=== PATIENT | female | born 1970 | race African-American/Black ===

== ENCOUNTER 2017-06-04 11:45 | Day surgery (SDC) | payer OTHER ==
[2017-06-03 12:55] VITALS: BMI 39.2
[2017-06-04] MEDS ORDERED: Propofol 200 MG/20 ML VIAL ONE (13:19)
--- NOTE | 2017-06-04 14:26 | OP ---
DATE OF PROCEDURE: 06/04/2017 PROCEDURE: Esophagogastroduodenoscopy with biopsy and incomplete colonoscopy. PREOPERATIVE DIAGNOSES: Epigastric abdominal pain with history of Helicobacter pylori infection and change in bowel habits and constipation. OPERATIVE NOTE: Informed consent was obtained from the patient. She was sedated with total intrave nous anesthesia. The bite block was placed and the endoscope was advanced easily to the second port ion of the duodenum and retroflexion was performed in the stomach. The esophagus was normal. The G E junction was normal. The stomach had minimal nonerosive patchy erythematous gastritis in the antr um. Biopsies were obtained to rule out H. pylori. Retroflexed views in the stomach were normal. T he pylorus and first and second portions of the duodenum were normal. Duodenal biopsies were taken to rule out celiac disease. The patient was turned around. Rectal exam was performed and was panchito l. The colonoscope was advanced to the cecum where the ileocecal valve and appendiceal orifice were clearly identified. The preparation quality was poor with solid stool and thick liquid stool throu ghout the colon. Views were only adequate to rule out a large near obstructing mass anywhere in the colon. The scope could be passed to the cecum. The remainder of the views of the colon was inadeq uate. Retroflexed views in the rectum again were obstructive and had been unremarkable. RECOMMENDATIONS: 1. Minimal antral gastritis. 2. Otherwise normal esophagogastroduodenoscopy. Gastric biopsies taken to rule out Helicobacter py eugene. Duodenal biopsies taken to rule out celiac disease. 3. Incomplete colonoscopy due to poor colon prep. There were no large obstructing lesions. The sc ope could be advanced to the cecum. RECOMMENDATIONS: 1. Await histopathology. 2. Adjust dose of daily Linzess based on her response. 3. Reschedule colonoscopy with a better prep.
== END 2017-06-04 15:11 | disposition home or self-care (01) ==
LOC: SDC 11:45
PROVIDERS: ATTEND Internal Medicine Gastroenterology
PROC: 0DB68ZX Excision of Stomach, Via Natural or Artificial Opening Endoscopic, Diagnostic (ICD-10-PCS; principal; 2017-06-04)
PROC: 0DJD8ZZ Inspection of Lower Intestinal Tract, Via Natural or Artificial Opening Endoscopic (ICD-10-PCS; principal; 2017-06-04)
DX: K29.80 Duodenitis without bleeding (principal); K29.70 Gastritis, unspecified, without bleeding; B96.81 Helicobacter pylori [H. pylori] as the cause of diseases classified elsewhere; Z79.899 Other long term (current) drug therapy; Z88.8 Allergy status to other drugs, medicaments and biological substances; Z96.652 Presence of left artificial knee joint; Z90.710 Acquired absence of both cervix and uterus; Z98.890 Other specified postprocedural states
CPT/HCPCS: 88305; 88312; J2704

== ENCOUNTER 2017-07-12 14:11 | Outpatient (CLI) | payer OTHER ==
--- NOTE | 2017-07-12 16:48 | MRI ---
NONCONTRAST LUMBAR SPINE MRI 07/12/17 INDICATION: Lumbar spondylosis without myelopathy. FINDINGS: There is no evidence of marrow edema, compression deformity or traumatic subluxation of the lumbar sp ine. There is mild straightening of the normal lumbar lordosis. Conus medullaris is normal in morphol ogy terminating at T12-L1. No abnormality of significance involving the visualized retroperitoneum. D isc spaces are preserved. No evidence of disc space fluid or paraspinus edema. The central canal and neural foramina of the lumbar spine do not reveal significant stenosis. Focal fatty marrow is present involving the sacrum. IMPRESSION: No significant abnormalities of the lumbar spine. POS: [facility]
== END 2017-07-12 14:12 | disposition home or self-care (01) ==
LOC: TBSIIMAG 14:11
PROVIDERS: ATTEND Neurological Surgery
DX: M47.816 Spondylosis without myelopathy or radiculopathy, lumbar region (principal); Q76.2 Congenital spondylolisthesis
CPT/HCPCS: 72148

== ENCOUNTER 2017-08-08 09:24 | Outpatient (CLI) | payer OTHER ==
[2017-08-08 10:53] LABS: Mean Corpuscular HGB CONC 31.6 g/dL (32.0-36.0); Mean Corpuscular Hemoglobin 28.8 pg (27.0-31.0); Mean Corpuscular Volume 91.2 fl (81.0-99.0); Mean Platelet Volume 7.4 fL (7.4-10.4); Platelet Count 338 thou/uL (130-400); RBC Distribution Width 11.7 % (11.5-14.5); Red Blood Cell (RBC) Count 3.82 mill/uL (4.20-5.40); White Blood Cell (WBC) Count 9.7 thou/uL (4.8-10.8)
[2017-08-08 11:05] LABS: Anion Gap 12 mmol/L (10-20); BUN (Urea Nitrogen) 18 mg/dL (7.0-18.7); Calc. Creatinine Clearance 0 mL/min (70-130); Calcium 8.6 mg/dL (7.8-10.44); Carbon Dioxide 21 mmol/L (22-29); Chloride 110 mmol/L (98-107); Estimated GFR-MDRD 90; Glucose 103 mg/dL (70-105); Potassium 3.3 mmol/L (3.5-5.1); Sodium 140 mmol/L (136-145)
--- NOTE | 2017-08-15 19:36 | EKG ---
Test Reason : Blood Pressure : / mmHG Vent. Rate : 075 BPM Atrial Rate : 075 BPM P-R Int : 154 ms QRS Dur : 086 ms QT Int : 432 ms P-R-T Axes : 073 034 035 degrees QTc Int : 482 ms Normal sinus rhythm Cannot rule out Anterior infarct , age undetermined Abnormal ECG When compared with ECG of 12-DEC-2016 11:14, Nonspecific T wave abnormality has replaced inverted T waves in Inferior leads Nonspecific T wave abnormality no longer evident in Lateral leads Confirmed by YARELI KINGSTON (2) on 08/15/2017 7:36:05 PM Referred By: [place] Confirmed By:YARELI KINGSTON
== END 2017-08-08 09:25 | disposition home or self-care (01) ==
LOC: LABBT 09:24
PROVIDERS: ATTEND Neurological Surgery
DX: Z01.818 Encounter for other preprocedural examination (principal); M54.12 Radiculopathy, cervical region
CPT/HCPCS: 80048; 85027; 93005; 93010

== ENCOUNTER 2017-08-12 06:09 | Day surgery (SDC) | payer OTHER ==
[2017-08-08 09:42] VITALS: BMI 38.5
[2017-08-12] MEDS ORDERED: CEFAZOLIN/Water 2 GM/20 ML SYRINGE ONE (06:17)
[2017-08-12] MEDS ORDERED: Sodium Chloride 0.9% 10 ML ONE (06:28)
[2017-08-12] MEDS ORDERED: Fentanyl 100 MCG/2 ML VIAL ONE ×2 (07:01→08:47)
[2017-08-12] MEDS ORDERED: Promethazine HCl 25 MG/ML VIAL ONE (07:14)
--- NOTE | 2017-08-12 08:36 | OP ---
DATE OF PROCEDURE: 08/12/2017 SURGEON: Davonte Hernandez M.D. DIRECTOR OPERATIONS: Stephy Holliday PROCEDURE: Anterior cervical discectomy C6-7. Interbody arthrodesis, intravertebral biomechanical d evice, local morselized autograft, demineralized bone matrix, anterior titanium instrumentation C6-7. PROCEDURE IN DETAIL: The patient was brought into the operating room and intubated. She was positio shaggy supine with the head in modest extension on a gel-filled donut. Incision was made in the right p recervical area and dissecting medial to the sternocleidomastoid muscle. We identified the anterior cervical spine and our level was confirmed by x-ray. We debrided anterior osteophytes, placed distra ction across the disc space and using the operating microscope and microdissection techniques, comple tely decompressed the spinal cord from foramen to foramen. The bony endplates were then decorticated for the purpose of arthrodesis and appropriately sized intravertebral biomechanical PEEK device was brought into the field, filled with demineralized bone matrix and local morselized autograft, and tap ped into place securely at C6-7. Next, an anterior plate was brought in the field and secured to C6 and C7 using two 14 mm screws at each level. The wound was then extensively irrigated, immaculate he mostasis was secured, and the wound was closed in anatomic layers over a drain.
[2017-08-12] MEDS ORDERED: diphenhydrAMINE 25 MG CAP PO PRN (11:29)
[2017-08-12] MEDS ORDERED: Morphine 4 MG/ML Carpuject SLOW IVP PRN (11:29)
[2017-08-12] MEDS ORDERED: diphenhydrAMINE 50 MG/ML VIAL IVP PRN (11:29)
[2017-08-12] MEDS ORDERED: Milk Of Magnesia 30 ML UDCUP PO PRN (11:29)
[2017-08-12] MEDS ORDERED: Promethazine HCl 25 MG/ML VIAL IM PRN (11:29)
[2017-08-12] MEDS ORDERED: HYDROcodone/Acetaminophen 10/325 mg Tablet PO PRN (11:29)
[2017-08-12] MEDS ORDERED: traMADol HCl 50 MG TAB PO PRN ×2 (11:29)
[2017-08-12] MEDS ORDERED: Promethazine HCl 12.5 MG SUPP PR PRN (11:29)
[2017-08-12] MEDS: tiZANidine HCl 4 MG TAB PO PRN ×2 (11:35→21:22)
[2017-08-12] MEDS: Sodium Chloride 0.9% 1,000 ML IV SCH ×2 (11:36→23:19)
[2017-08-12] MEDS: HYDROcodone/Acetaminophen 10/325 mg Tablet PO PRN ×3 (11:38→20:09)
[2017-08-12] MEDS ORDERED: Morphine PF 1 MG/ML SYR IVP PRN (11:45)
[2017-08-12] MEDS ORDERED: Morphine 5 mg/5 ml in 0.9% NaCl/PF SYRINGE SLOW IVP PRN (11:45)
[2017-08-12] MEDS: CEFAZOLIN/Water 2 GM/20 ML SYRINGE SLOW IVP SCH ×2 (14:17→22:07)
[2017-08-12] MEDS ORDERED: Lidocaine 1% PF 5 ML VIAL ONE (16:52)
[2017-08-12] MEDS ORDERED: Ketorolac Tromethamine 30 MG/ML VIAL ONE (16:52)
[2017-08-12] MEDS ORDERED: Propofol 200 MG/20 ML VIAL ONE (16:52)
[2017-08-12] MEDS ORDERED: Dexamethasone 20 MG/5 ML VIAL ONE (16:52)
[2017-08-12] MEDS ORDERED: Glycopyrrolate 0.2 MG/ML 5 ML SYRINGE ONE (16:52)
[2017-08-12] MEDS ORDERED: Zolpidem Tartrate 5 MG TAB PO SCH (21:30)
[2017-08-13] MEDS: HYDROcodone/Acetaminophen 10/325 mg Tablet PO PRN ×2 (02:17→06:36)
[2017-08-13] MEDS: tiZANidine HCl 4 MG TAB PO PRN (05:11)
[2017-08-13 05:58] VITALS: BP 102/66; TEMP 97.5
[2017-08-13] MEDS: CEFAZOLIN/Water 2 GM/20 ML SYRINGE SLOW IVP SCH (06:39)
[2017-08-13] MEDS ORDERED: Zolpidem Tartrate 5 MG TAB PO SCH (21:00)
== END 2017-08-13 10:34 | disposition home or self-care (01) ==
LOC: SDC 06:09 → 3SE 09:21 → SDC 08-13 10:34
PROVIDERS: ATTEND Neurological Surgery
PROC: 0RT30ZZ Resection of Cervical Vertebral Disc, Open Approach (ICD-10-PCS; principal; 2017-08-13)
PROC: 0RG10A0 Fusion of Cervical Vertebral Joint with Interbody Fusion Device, Anterior Approach, Anterior Column, Open Approach (ICD-10-PCS; principal; 2017-08-13)
DX: M50.123 Cervical disc disorder at C6-C7 level with radiculopathy (principal); Z79.899 Other long term (current) drug therapy; Z88.8 Allergy status to other drugs, medicaments and biological substances; Z90.710 Acquired absence of both cervix and uterus; Z90.89 Acquired absence of other organs; Z98.890 Other specified postprocedural states
CPT/HCPCS: 76001; A4216; C1713; J1100; J1885; J2001; J2270; J2550; J2704; J3010; J3490

== ENCOUNTER 2017-08-29 16:07 | Outpatient (CLI) | payer OTHER ==
--- NOTE | 2017-08-29 17:57 | RAD ---
RADIOGRAPH CERVICAL SPINE 3 VIEWS: 08/29/17 HISTORY: 47-year-old female with degenerative disc disease of the cervical spine. COMPARISON: None. FINDINGS: There are anterior metallic plate and screws at C6 and C7, with interbody fusion bone graft cage betw een the C6 and C7 vertebral bodies. Alignment is normal. Vertebral body heights are maintained. There are small end plate marginal osteophytes encroaching upon the anterior aspect of the spinal canal at C4-5 and C5-6. No high grade disc space narrowing identified. No prevertebral soft tissue swelling. Atlantoaxial joints are normal. IMPRESSION: 1. Status post anterior cervical discectomy and fusion (ACDF) at C6-7. 2. Mild degenerative disc changes at C4-5 and C5-6. STEPHANIE [] POS: [facility]
== END 2017-08-29 16:08 | disposition home or self-care (01) ==
LOC: TBSIIMAG 16:07
PROVIDERS: ATTEND Physician Assistant
DX: M50.30 Other cervical disc degeneration, unspecified cervical region (principal); Z98.1 Arthrodesis status
CPT/HCPCS: 72040

== ENCOUNTER 2017-10-09 15:44 | Outpatient (CLI) | payer OTHER ==
--- NOTE | 2017-10-09 17:16 | RAD ---
CERVICAL SPINE: 10/09/17 Four views. HISTORY: Postop followup. COMPARISON: Films of 08/29/17. FINDINGS/IMPRESSION: Patient is post anterior fusion procedure. Anterior plate and screws and interbody implant again note d at C6-7. Vertebral bodies maintain height and alignment. There has been no significant interval mile nge. POS: [facility]
== END 2017-10-09 15:45 | disposition home or self-care (01) ==
LOC: TBSIIMAG 15:44
PROVIDERS: ATTEND Neurological Surgery
DX: M50.30 Other cervical disc degeneration, unspecified cervical region (principal); Z98.1 Arthrodesis status
CPT/HCPCS: 72040

== ENCOUNTER 2017-11-15 07:23 | Outpatient (CLI) | payer OTHER, MEDICARE ==
--- NOTE | 2017-11-15 09:06 | MRI ---
MRI THORACIC SPINE: HISTORY: Thoracic radiculopathy, M54.14. FINDINGS: Multiplanar, multisequence, noncontrast-enhanced MRI images thoracic spine are obtained. The spinal cord is unremarkable. No evidence of cord masses or lesions seen. Disks are well maintai shaggy without evidence of disk herniations, spinal stenosis, or significant neural foraminal narrowing. The vertebral bodies are unremarkable. No evidence of epidural masses or lesions seen. IMPRESSION: Normal MRI thoracic spine. POS: [facility]
== END 2017-11-15 07:24 | disposition home or self-care (01) ==
LOC: MRI 07:23
PROVIDERS: ATTEND Specialist
DX: M54.14 Radiculopathy, thoracic region (principal)
CPT/HCPCS: 72146

== ENCOUNTER 2017-12-25 11:02 | Emergency (ER) | payer OTHER, MEDICARE ==
--- NOTE | 2017-12-25 12:28 | RAD ---
RADIOGRAPH RIGHT HIP TWO VIEWS: History: 47-year-old female status post acute traumatic injury to right hip from fall. FINDINGS: No fracture is identified. No dislocation. IMPRESSION: Negative. POS: [facility]
--- NOTE | 2017-12-25 12:29 | RAD ---
RADIOGRAPH PELVIS ONE VIEW: History: 47-year-old female with traumatic pelvic pain due to fall. FINDINGS: Pelvic ring appears to be grossly intact. No fracture or dislocation. IMPRESSION: Negative. POS: [facility]
== END 2017-12-25 12:57 | disposition home or self-care (01) ==
LOC: ERS 11:02
DX: S76.011A Strain of muscle, fascia and tendon of right hip, initial encounter (principal); F32.9 Major depressive disorder, single episode, unspecified; F41.9 Anxiety disorder, unspecified; I10 Essential (primary) hypertension; J45.909 Unspecified asthma, uncomplicated; K21.9 Gastro-esophageal reflux disease without esophagitis; Z79.82 Long term (current) use of aspirin; Z79.899 Other long term (current) drug therapy; W19.XXXA Unspecified fall, initial encounter
CPT/HCPCS: 72170

== ENCOUNTER 2018-02-14 17:24 | Emergency (ER) | payer OTHER, MEDICARE ==
[2018-02-14] MEDS ORDERED: Ketorolac Tromethamine 60 MG/2 ML VIAL ONE (18:19)
== END 2018-02-14 19:03 | disposition home or self-care (01) ==
LOC: ERS 17:24
DX: M54.5 Low back pain (principal); M19.90 Unspecified osteoarthritis, unspecified site; J45.909 Unspecified asthma, uncomplicated; K21.9 Gastro-esophageal reflux disease without esophagitis; I10 Essential (primary) hypertension; F41.9 Anxiety disorder, unspecified; F32.9 Major depressive disorder, single episode, unspecified; Z79.899 Other long term (current) drug therapy; Z79.82 Long term (current) use of aspirin; W10.9XXA Fall (on) (from) unspecified stairs and steps, initial encounter
CPT/HCPCS: 96372; J1885

== ENCOUNTER 2018-03-29 18:21 | Emergency (ER) | payer OTHER, MEDICARE ==
[2018-03-29] MEDS ORDERED: diphenhydrAMINE 25 MG CAP ONE (18:52)
[2018-03-29] MEDS ORDERED: Famotidine 20 MG TAB ONE (18:54)
[2018-03-29] MEDS ORDERED: predniSONE 20 MG TAB ONE (18:54)
== END 2018-03-29 19:04 | disposition home or self-care (01) ==
LOC: SCSER 18:21
DX: L50.9 Urticaria, unspecified (principal); F32.9 Major depressive disorder, single episode, unspecified; F41.9 Anxiety disorder, unspecified; I10 Essential (primary) hypertension; J45.909 Unspecified asthma, uncomplicated; K21.9 Gastro-esophageal reflux disease without esophagitis
CPT/HCPCS: 99282; J7506

== ENCOUNTER 2018-07-07 07:50 | Outpatient (CLI) | payer OTHER ==
--- NOTE | 2018-07-07 11:59 | RAD ---
UPPER GI SMALL BOWEL FOLLOW THROUGH: DATE: 07/07/2018. COMPARISON: None. HISTORY: Constipation. FINDINGS: [employer] imaging demonstrates a nonobstructed bowel gas pattern. Numerous calcifications in the pelvis noted, evidence of phleboliths. A double contrast upper GI is performed. Distal esophagus is normal. No gastroesophageal reflux cou ld be elicited during this examination. The duodenal bulb and gastric antrum appear normal. Gastric mucosa demonstrates no abnormality. Small bowel follow through was then performed. Contrast media rapidly extends to the colon, by 15-30 minutes. Spot imaging of the small bowel appears unremarkable. The patient ingested a barium table t which extends across the gastroesophageal junction without delay. IMPRESSION: No acute findings. Rapid transit from stomach to colon within 30 minutes. POS: [facility]
== END 2018-07-07 07:51 | disposition home or self-care (01) ==
LOC: RAD 07:50
PROVIDERS: ATTEND Family Medicine
DX: K59.01 Slow transit constipation (principal)
CPT/HCPCS: 74249

== ENCOUNTER 2018-08-25 09:44 | Outpatient (CLI) | payer OTHER, MEDICARE ==
--- NOTE | 2018-08-25 10:36 | RAD ---
LUMBAR SPINE FOUR VIEWS: Indications: Spondylosis without myelopathy. Low back pain. FINDINGS: Lumbar vertebrae maintain normal height and alignment in the lateral projection. Disc spaces are pres erved. Minimal degenerative spurring. Mild facet hypertrophy at L2-3 and L3-4 with moderate facet hyp ertrophy at L4-5 and L5-S1. No spondylolisthesis or spondylosis identified. No significant change in alignment with flexion or extension. IMPRESSION: Degenerative changes noted with facet hypertrophy prominent at L4-5 and L5-S1. Lumbar spine exam othe rwise unremarkable. POS: [facility]
--- NOTE | 2018-08-25 15:44 | MRI ---
MRI LUMBAR SPINE WITHOUT CONTRAST: HISTORY: M51.15, intervertebral disk disorder of the lumbar region. COMPARISON: Lumbar spine radiographs the same day, as well as MRI from 07/12/2017. FINDINGS: No marrow infiltrative process. The aortic contour is normal. No retroperitoneal adenopathy. No hy dronephrosis. The conus medullaris terminates at the inferior endplate of L1. Levels are as follows: L1-L2: Normal disk. No neural foraminal or spinal canal narrowing. L2-L3: Normal disk. No neural foraminal or spinal canal narrowing. L3-L4: Low grade disk desiccation. Small bilateral subforaminal disk osteophyte complexes, larger o n the right. There is mild right-sided neural foraminal narrowing without nerve root abutment. L4-L5: Mild disk desiccation. Very small bilateral lateral recess disk osteophyte complex bilateral ly. No significant neural foraminal or spinal canal narrowing. Moderate facet arthropathy. L5-S1: Mild disk desiccation. Moderate facet arthropathy. There is right lateral recess and subfor aminal zone disk osteophyte complex causing mild right-sided neural foraminal narrowing with abutment of the exiting nerve root. IMPRESSION: Mild spondylosis, worse at L5-S1. POS: [facility]
== END 2018-08-25 09:45 | disposition home or self-care (01) ==
LOC: BICMRI 09:44
PROVIDERS: ATTEND Nurse Practitioner Family
DX: M51.16 Intervertebral disc disorders with radiculopathy, lumbar region (principal); M47.26 Other spondylosis with radiculopathy, lumbar region; M47.817 Spondylosis without myelopathy or radiculopathy, lumbosacral region
CPT/HCPCS: 72110; 72148

== ENCOUNTER 2018-09-29 16:45 | Emergency (ER) | payer OTHER, MEDICARE ==
--- NOTE | 2018-09-29 17:20 | RAD ---
LEFT KNEE FOUR VIEWS: History: Fall with injury to knee. FINDINGS: There is a knee prosthesis. No acute fracture. No evidence of loosening. Components appear normal in alignment. No evidence of joint effusion. IMPRESSION: No acute finding. POS: [facility]
[2018-09-29] MEDS ORDERED: Ibuprofen 800 MG TAB ONE (17:25)
== END 2018-09-29 17:35 | disposition home or self-care (01) ==
LOC: SCSER 16:45
DX: M25.562 Pain in left knee (principal); J45.909 Unspecified asthma, uncomplicated; K21.9 Gastro-esophageal reflux disease without esophagitis; I10 Essential (primary) hypertension; F41.9 Anxiety disorder, unspecified; F32.9 Major depressive disorder, single episode, unspecified; W17.89XA Other fall from one level to another, initial encounter; Y92.59 Other trade areas as the place of occurrence of the external cause

== ENCOUNTER 2018-10-01 16:08 | Outpatient (CLI) | payer OTHER, MEDICARE | END 2018-10-01 16:09 | disposition home or self-care (01) | LOC: CTENTCT 16:08 | PROVIDERS: ATTEND Specialist | DX: J32.9 Chronic sinusitis, unspecified (principal) | CPT/HCPCS: 70486 ==

== ENCOUNTER 2018-10-02 10:20 | Day surgery (SDC) | payer OTHER, MEDICARE ==
[2018-10-01 17:42] VITALS: BMI 39.4
[2018-10-02] MEDS ORDERED: Oxymetazoline HCl 0.05% ( 15 ML ) ONE (10:41)
[2018-10-02] MEDS ORDERED: Fentanyl 100 MCG/2 ML VIAL ONE ×3 (11:06→13:24)
[2018-10-02 11:19] LABS: Anion Gap 12 mmol/L (10-20); BUN (Urea Nitrogen) 14 mg/dL (7.0-18.7); Calc. Creatinine Clearance 150 mL/min (70-130); Calcium 9.7 mg/dL (7.8-10.44); Carbon Dioxide 26 mmol/L (22-29); Chloride 108 mmol/L (98-107); Estimated GFR-MDRD Greater than 90; Glucose 93 mg/dL (70-105); Potassium 3.6 mmol/L (3.5-5.1); Sodium 142 mmol/L (136-145)
[2018-10-02] MEDS ORDERED: Midazolam HCl 2 mg/2 ml Vial ONE (11:35)
[2018-10-02] MEDS ORDERED: Lidocaine 1% w/Epinephrine 1:100K 20 ML VIAL ONE (12:36)
[2018-10-02] MEDS ORDERED: EPINEPHrine 1 MG/ML AMP ONE (12:36)
[2018-10-02] MEDS ORDERED: Sodium Chloride 0.9% 10 ML ONE (12:36)
[2018-10-02] MEDS ORDERED: Glycopyrrolate 0.2 MG/ML 5 ML SYRINGE ONE (13:57)
[2018-10-02] MEDS ORDERED: PROPOFOL 200 MG/20 ML VIAL ONE (13:57)
[2018-10-02] MEDS ORDERED: Rocuronium Bromide 10 MG/ML (10ML VIAL) ONE (13:57)
[2018-10-02] MEDS ORDERED: Dexamethasone 20 MG/5 ML VIAL ONE (13:57)
[2018-10-02] MEDS ORDERED: Promethazine HCl 25 MG/ML VIAL ONE (14:08)
[2018-10-02] MEDS ORDERED: Ondansetron PF 4 MG/2 ML Vial ONE (14:55)
--- NOTE | 2018-10-03 08:57 | OP ---
DATE OF PROCEDURE: 10/02/2018 PREOPERATIVE DIAGNOSES: Chronic sinusitis, chronic facial pain, obstructive nasopharyngeal mass, chronic headache, and recurrent sinusitis. POSTOPERATIVE DIAGNOSES: Chronic sinusitis, chronic facial pain, obstructive nasopharyngeal mass, chronic headache, and recurrent sinusitis. PROCEDURES PERFORMED: 1. Bilateral nasal endoscopy with maxillary antrostomy with removal of tissue, bilateral nasal endoscopy with submucosal resection of inferior turbinates, bilateral nasal endoscopy with total ethmoidectomy, bilateral nasal endoscopy with frontal sinusotomy, bilateral nasal endoscopy with biopsy of nasopharyngeal mass. 2. Adenoidectomy over 12 years of age. FINDINGS: The patient has a history of recurrent sinus infections and progressive nasal obstruction with severe headache. CT scan showed very narrow osteomeatal complex in area of narrow nasofrontal duct, also was found to have opacification of the nasopharynx. Incision was made and then it enlarged large inferior turbinates. Decision was made to proceed with a limited endoscopic sinus surgery, followed by a biopsy of the nasopharyngeal mass and ultimately an adenoidectomy approach resection. The specimens were sent for lymphoma studies as well as for pathology. DESCRIPTION OF PROCEDURE: After consent was obtained, the patient was identified, brought to the operating room, and placed on the operating room table in the supine position. Consent was obtained, notifying the patient of the possibility of additional infections, bleeding, brain injury, and eye/orbital injury. The patient was placed on the operating room table, and general endotracheal anesthesia and intravenous access was obtained. The patient was then positioned, prepped and draped for endoscopic sinus surgery. Nasal preparation included trimming nasal vestibular hairs and spraying in topical Afrin. We then placed Afrin topical solution on nasal pledgets and strategically located them intranasally. The perinasal mucosa was injected with 1% lidocaine with 1:100,000 epinephrine in the submucoperichondrial plane of the septum, lateral nasal wall, and anterior to the uncinate. The patient was then prepped and draped in a sterile fashion and positioned for endoscopic sinus surgery. BILATERAL NASAL ENDOSCOPY WITH MAXILLARY ANTROSTOMY: The uncinate was then identified and the extent of the uncinate was appreciated by out-fracturing the uncinate with the ball-tip probe. We then used the sickle blade to disarticulate the uncinate from the lateral nasal wall. This was then removed with straight biting and upbiting punches with the remaining shrouds of mucosa and bony septum removed with the micro-debrider. The natural os of the maxillary sinus was then identified and enlarged with the maxillary punches and back biting forceps. BILATERAL NASAL ENDOSCOPY WITH TOTAL ETHMOIDECTOMY: The anterior face of the ethmoid bulla was entered and with the micro-debrider, dissection continued posteriorly to the ground lamella. The limits of dissection included the insertion of the middle turbinate, medial orbital wall, and base of skull. We similarly identified the frontal recess and removed shrouds of bone and debris in that region to obtain patency into the agger nasi region and frontal recess. We then entered the ground lamella and its anteroinferior aspect and proceeded posteriorly, opening the posterior ethmoid air-cell system. Again, the limits of dissection included the base of skull and medial orbital wall. BILATERAL NASAL ENDOSCOPY WITH FRONTAL SINUSOTOMY: Following the ethmoidectomy, we then turned our attention to the frontal nasal recess. The agger nasi cells were addressed and the frontal recess was exposed. The natural opening to the frontal sinus was identified. At this point, any obstructing shrouds of mucosa and bony fragments were removed with a curved microdebrider. The wound was then examined and found to be free of any obstructing debris. We then turned our attention to the contralateral side and performed a similar procedure again under endoscopic visualization using a 45-degree scope. We were able to visualize the frontal recess. Obstructing shrouds of mucosa and bone were removed with a microdebrider. The natural os of frontal sinus was identified and enlarged and irrigated. At this point, the frontal sinusotomy was completed and we turned to the next area of concern. ADENOIDECTOMY OVER 12 YEARS OF AGE: General endotracheal anesthesia and intravenous access was obtained and we proceeded with positioning the patient for oropharyngeal surgery. Oropharyngeal exposure was obtained with a [place] mouth gag after a head drape was placed and secured with a towel clip. The [place] mouth gag was then suspended from the Nicole tray and palatal elevation was achieved with a red rubber catheter. We then removed the nasopharyngeal pack, suctioned the residual blood and the adenoid bed was then cauterized under direct mirror visualization and residual adenoid tissue was vaporized at this time. After this portion of the procedure, hemostasis was completely obtained. The patient's nasal cavity, nasopharyngeal, and oral cavity were copiously irrigated with iced saline and subsequently suctioned. We then used the red rubber catheter to suction the gastric contents. After the nasopharyngeal biopsy was obtained, we placed a [place] mouth gag and suspended the palate with a red rubber catheter with a 45-degree endoscope were then systematically able to use a shaver to reduce the size of the nasopharyngeal mass and then ultimately obtained hemostasis with electrocautery. The mouth gag, red rubber catheters, and clamps were removed. The patient was awakened, extubated, and taken to recovery room in stable condition. Job ID: [id number]
== END 2018-10-02 16:40 | disposition home or self-care (01) ==
LOC: SDC 10:20
PROVIDERS: ATTEND Specialist
PROC: 09BQ8ZZ Excision of Right Maxillary Sinus, Via Natural or Artificial Opening Endoscopic (ICD-10-PCS; principal; 2018-10-02)
PROC: 099T8ZZ Drainage of Left Frontal Sinus, Via Natural or Artificial Opening Endoscopic (ICD-10-PCS; principal; 2018-10-02)
PROC: 09TV8ZZ Resection of Left Ethmoid Sinus, Via Natural or Artificial Opening Endoscopic (ICD-10-PCS; principal; 2018-10-02)
PROC: 09BR8ZZ Excision of Left Maxillary Sinus, Via Natural or Artificial Opening Endoscopic (ICD-10-PCS; principal; 2018-10-02)
PROC: 0CTQXZZ Resection of Adenoids, External Approach (ICD-10-PCS; principal; 2018-10-02)
PROC: 09BK8ZX Excision of Nasal Mucosa and Soft Tissue, Via Natural or Artificial Opening Endoscopic, Diagnostic (ICD-10-PCS; principal; 2018-10-02)
PROC: 09TU8ZZ Resection of Right Ethmoid Sinus, Via Natural or Artificial Opening Endoscopic (ICD-10-PCS; principal; 2018-10-02)
PROC: 099S8ZZ Drainage of Right Frontal Sinus, Via Natural or Artificial Opening Endoscopic (ICD-10-PCS; principal; 2018-10-02)
DX: J32.9 Chronic sinusitis, unspecified (principal); J39.2 Other diseases of pharynx; M19.90 Unspecified osteoarthritis, unspecified site; E89.0 Postprocedural hypothyroidism; I10 Essential (primary) hypertension; J45.909 Unspecified asthma, uncomplicated; F32.9 Major depressive disorder, single episode, unspecified; K21.9 Gastro-esophageal reflux disease without esophagitis; E66.9 Obesity, unspecified; Z68.39 Body mass index [BMI] 39.0-39.9, adult; Z79.899 Other long term (current) drug therapy; Z88.8 Allergy status to other drugs, medicaments and biological substances
CPT/HCPCS: 36415; 80048; 85014; 88184; 88305; 93005; 93010; J0131; J0171; J1100; J2001; J2250; J2405; J2550; J2704; J3010

== ENCOUNTER 2019-07-01 09:20 | Outpatient (CLI) | payer OTHER, MEDICARE ==
--- NOTE | 2019-07-01 11:00 | RAD ---
LUMBAR SPINE 5 VIEWS: Date: 07/01/19 INDICATION: Lumbar radiculopathy. COMPARISON: Prior lumbar spine radiograph dated 08/25/18. FINDINGS: There are five lumbar-type vertebrae. The mild disc degenerative disease at L4-5 and L5-S1, stable ap pearing. Facet osteoarthritic change is stable appearing. No abnormal translational motion is evident . There are small phleboliths within the lower pelvis. IMPRESSION: Stable mild spondylosis of the lumbar spine. No abnormal translational motion. POS: [facility]
== END 2019-07-01 09:21 | disposition home or self-care (01) ==
LOC: RAD 09:20
PROVIDERS: ATTEND Specialist
DX: M51.16 Intervertebral disc disorders with radiculopathy, lumbar region (principal); M47.26 Other spondylosis with radiculopathy, lumbar region
CPT/HCPCS: 72120

== ENCOUNTER 2019-07-17 15:57 | Outpatient (CLI) | payer MEDICARE, OTHER ==
--- NOTE | 2019-07-17 17:12 | MRI ---
MRI LUMBAR SPINE NONCONTRAST: DATE: 07/17/19 HISTORY: 49-year-old female with ICD-10: M51.16 intervertebral disc disorder with radiculopathy. COMPARISON: 08/25/18 FINDINGS: For the purposes of this report, it will be assumed that there are 5 lumbar-type vertebrae. The vert ebral body heights are maintained. Alignment is normal. No high grade disc space narrowing at any lev el. There is disc desiccation at the last three levels without high grade disc space narrowing. Conus medullaris terminates at L1. Cauda equina is arranged in a symmetrical, normal distribution througho ut the thecal sac. No major bone marrow signal abnormality. The findings by individual levels are as follows: T12-L1: Normal. L1-2: Normal. L2-3: Normal. L3-4: Mild interval increase in the right far lateral asymmetric component of disc bulge. This minor change is the only interval change since 08/25/2018. Mild to moderate right neural foraminal stenosis. Mild left neural foraminal stenosis. No high grade central spinal canal stenosis. Fluid in bilateral facet joints with mild facet DJD bilaterally. L4-5: Bilateral facet joint effusions. Moderate bilateral facet DJD, left worse than right. Mild righ t neural foraminal stenosis. Moderate left neural foraminal stenosis. No high grade central stenosis. Tiny right paracentral focal disc protrusion with annular fissure. Mild to moderate right neural for aminal stenosis. Moderate left neural foraminal stenosis. L5-S1: Mild bilateral facet DJD, right greater than left. No central stenosis. Mild diffuse disc bulg e. Mild to moderate bilateral neural foraminal stenosis. No major interval change overall. IMPRESSION: 1. Predominantly mild lumbar spondylosis, consisting of mild degenerative disc disease at the la st three levels, and high grade bilateral facet osteoarthrosis at L4-5. 2. Mild-moderate neural foraminal stenosis at a few levels. 3. No significant central spinal canal stenosis at any level. STEPHANIE Ivey POS: [facility]
== END 2019-07-17 15:58 | disposition home or self-care (01) ==
LOC: BICMRI 15:57
PROVIDERS: ATTEND Specialist
DX: M51.16 Intervertebral disc disorders with radiculopathy, lumbar region (principal); M47.26 Other spondylosis with radiculopathy, lumbar region; M48.061 Spinal stenosis, lumbar region without neurogenic claudication
CPT/HCPCS: 72148

== ENCOUNTER 2019-08-06 08:23 | Outpatient (CLI) | payer OTHER, MEDICARE ==
--- NOTE | 2019-08-06 10:02 | RAD ---
BIPHASIC UPPER GI: HISTORY: Morbid obesity due to excess calories FINDINGS: Swallowing was grossly normal. There is unobstructed flow of contrast through the esophagus into the stomach, duodenum and proximal jejunum. No ulcer, stricture, mass or diverticulum is seen. No GE reflux was demonstrated during the Valsalva maneuver. IMPRESSION: Normal exam.
== END 2019-08-06 08:24 | disposition home or self-care (01) ==
LOC: RAD 08:23
PROVIDERS: ATTEND Specialist
DX: E66.01 Morbid (severe) obesity due to excess calories (principal)
CPT/HCPCS: 74240

== ENCOUNTER 2019-08-27 07:03 | Day surgery (SDC) | payer OTHER, MEDICARE ==
[2019-08-26 17:18] VITALS: BMI 40.1
[2019-08-27] MEDS ORDERED: Lidocaine 1% PF 5 ML VIAL ONE (09:47)
[2019-08-27] MEDS ORDERED: PROPOFOL 200 MG/20 ML VIAL ONE (09:47)
--- NOTE | 2019-08-27 11:58 | OP ---
DATE OF PROCEDURE: 08/27/2019 PROCEDURE PERFORMED: Colonoscopy with snare polypectomy. PREOPERATIVE DIAGNOSIS: Colon cancer screening. DESCRIPTION OF PROCEDURE: Informed consent was obtained from the patient. She was sedated with total intravenous anesthesia. The rectal exam was performed and was normal. The colonoscope was advanced to the cecum, where the ileocecal valve and appendiceal orifice were clearly identified. The preparation quality was good. There was a 5-mm polyp in the cecum, which was removed by cold snare polypectomy. The remainder of the colonic mucosa was normal throughout. Retroflexed views in the rectum revealed small to moderate internal hemorrhoids. IMPRESSION: 1. 5-mm polyp removed from the cecum. 2. Small to moderate internal hemorrhoids. 3. Otherwise normal colonoscopy. RECOMMENDATIONS: 1. Await histopathology. 2. Repeat colonoscopy in 5 years if the polyp is an adenoma. 3. Repeat colonoscopy in 10 years if the polyp is hyperplastic or normal. Job ID: [id number]
== END 2019-08-27 10:06 | disposition home or self-care (01) ==
LOC: SDC 07:03
PROVIDERS: ATTEND Internal Medicine Gastroenterology
PROC: 0DBH8ZZ Excision of Cecum, Via Natural or Artificial Opening Endoscopic (ICD-10-PCS; principal; 2019-08-27)
DX: Z12.11 Encounter for screening for malignant neoplasm of colon (principal); D12.0 Benign neoplasm of cecum; K64.8 Other hemorrhoids; I10 Essential (primary) hypertension; E03.9 Hypothyroidism, unspecified; E78.5 Hyperlipidemia, unspecified; M19.90 Unspecified osteoarthritis, unspecified site; Z79.899 Other long term (current) drug therapy; Z88.8 Allergy status to other drugs, medicaments and biological substances
CPT/HCPCS: 88305; J2001; J2704

== ENCOUNTER 2019-10-27 13:52 | Outpatient (CLI) | payer OTHER, MEDICARE | END 2019-10-27 13:53 | disposition home or self-care (01) | LOC: DTY/OP 13:52 | PROVIDERS: ATTEND Specialist | DX: Z01.818 Encounter for other preprocedural examination (principal); E66.01 Morbid (severe) obesity due to excess calories | CPT/HCPCS: 97802 ==

== ENCOUNTER 2019-11-26 15:30 | Outpatient (CLI) | payer OTHER, MEDICARE | END 2019-11-26 15:31 | disposition home or self-care (01) | LOC: DTY/OP 15:30 | PROVIDERS: ATTEND Specialist | DX: Z01.818 Encounter for other preprocedural examination (principal); E66.01 Morbid (severe) obesity due to excess calories | CPT/HCPCS: 97802 ==

== ENCOUNTER 2020-05-13 08:55 | Outpatient (CLI) | payer OTHER, MEDICARE ==
--- NOTE | 2020-05-13 09:36 | MMO ---
Bilateral MAMMO Bilat Screen [facility]. CLINICAL HISTORY: Patient is 50 years old and is seen for screening. The patient has no family history of breast cancer. The patient has no personal history of cancer. VIEWS: The views performed were: bilateral craniocaudal with tomosynthesis and bilateral mediolateral oblique with tomosynthesis. FILMS COMPARED: The present examination has been compared to a prior imaging study performed at [facility] on 11/02/2016. This study has been interpreted with the assistance of computer-aided detection. MAMMOGRAM FINDINGS: There are scattered fibroglandular densities. There are no suspicious masses, suspicious calcifications, or new areas of architectural distortion. IMPRESSION: THERE IS NO MAMMOGRAPHIC EVIDENCE OF MALIGNANCY. A ROUTINE FOLLOW-UP MAMMOGRAM IN 1 YEAR IS RECOMMENDED. THE RESULTS OF THIS EXAM WERE SENT TO THE PATIENT. ACR BI-RADS Category 1 - Negative MAMMOGRAPHY NOTE: 1. A negative mammogram report should not delay a biopsy if a dominant of clinically suspicious mass is present. 2. Approximately 10% to 15% of breast cancers are not detected by mammography. 3. Adenosis and dense breasts may obscure an underlying neoplasm. Reported by: TYRON MONSIVAIS MD Electonically Signed: [id number]
== END 2020-05-13 08:56 | disposition home or self-care (01) ==
LOC: BICMAMMO 08:55
PROVIDERS: ATTEND Family Medicine
DX: Z12.31 Encounter for screening mammogram for malignant neoplasm of breast (principal)
CPT/HCPCS: 77063; 77067

== ENCOUNTER 2020-07-18 06:33 | Outpatient (CLI) | payer OTHER, MEDICARE ==
[2020-07-19 01:28] LABS: SARS-CoV-2 MS2 Positive; SARS-CoV-2 N Gene Negative; SARS-CoV-2 S Gene Negative; SARS-CoV-2 by NAA Not Detected (NotDetected); SARS-CoV-2 orf1ab Negative
== END 2020-07-18 06:34 | disposition home or self-care (01) ==
LOC: LABBT 06:33
PROVIDERS: ATTEND Specialist
DX: Z01.812 Encounter for preprocedural laboratory examination (principal); E66.01 Morbid (severe) obesity due to excess calories; Z20.828 Contact with and (suspected) exposure to other viral communicable diseases
CPT/HCPCS: 87635; U0003

== ENCOUNTER 2020-07-18 11:00 | Inpatient (IN) | payer OTHER, MEDICARE ==
[2020-07-20 10:46] VITALS: BMI 42.3
[2020-07-21] MEDS ORDERED: Acetaminophen 500 MG TAB ONE (06:30)
[2020-07-21] MEDS ORDERED: Ketorolac Tromethamine 30 MG/ML VIAL ONE (06:44)
[2020-07-21] MEDS ORDERED: Heparin 5,000 UNITS/ML VIAL ONE (06:44)
[2020-07-21] MEDS ORDERED: cefOXitin Sodium/Dextrose 2 GM/50 ML BAG ONE (06:44)
[2020-07-21] MEDS ORDERED: Fentanyl 250 MCG/5 ML VIAL ONE (06:47)
[2020-07-21] MEDS ORDERED: Midazolam HCl 2 mg/2 ml Vial ONE (06:47)
[2020-07-21] MEDS ORDERED: Bupivacaine 0.25% HCL 30 ML VIAL ONE (06:52)
[2020-07-21] MEDS ORDERED: Lidocaine 1% w/Epinephrine 1:100K 20 ML VIAL ONE (06:52)
[2020-07-21] MEDS ORDERED: HYDROmorphone 0.5 MG/0.5 ML SYRINGE ONE ×4 (09:35→12:03)
[2020-07-21] MEDS ORDERED: Ondansetron HCl/PF 4 MG/2 ML Vial IVP PRN (10:22)
[2020-07-21] MEDS ORDERED: HYDROmorphone 2 MG/ML VIAL SLOW IVP PRN (10:22)
[2020-07-21] MEDS ORDERED: Promethazine HCl 25 MG/ML VIAL SLOW IVP PRN (10:22)
[2020-07-21] MEDS ORDERED: Promethazine HCl 25 MG/ML VIAL IM PRN ×2 (10:22→12:41)
[2020-07-21] MEDS ORDERED: Fentanyl 100 MCG/2 ML VIAL ONE (10:38)
[2020-07-21] MEDS ORDERED: Glycopyrrolate 0.2 MG/ML 5 ML SYRINGE ONE (10:52)
[2020-07-21] MEDS ORDERED: Rocuronium Bromide 10 MG/ML (10ML VIAL) ONE (10:52)
[2020-07-21] MEDS ORDERED: Dexamethasone 20 MG/5 ML VIAL ONE (10:52)
[2020-07-21] MEDS ORDERED: PROPOFOL 200 MG/20 ML VIAL ONE (10:52)
[2020-07-21] MEDS ORDERED: Metoclopramide HCl 10 MG/2 ML VIAL ONE (10:52)
[2020-07-21] MEDS ORDERED: Ondansetron PF 4 MG/2 ML Vial ONE (10:52)
[2020-07-21] MEDS ORDERED: Esmolol 100 MG/10 ML VIAL ONE (10:52)
[2020-07-21] MEDS ORDERED: Lidocaine 1% PF 5 ML VIAL ONE (10:52)
[2020-07-21] MEDS ORDERED: Labetalol HCl 100 MG/20 ML VIAL ONE (11:39)
[2020-07-21] MEDS ORDERED: Morphine 4 MG/ML VIAL SLOW IVP PRN (12:41)
[2020-07-21] MEDS ORDERED: diphenhydrAMINE 50 MG/ML VIAL IVP PRN (12:41)
[2020-07-21] MEDS ORDERED: Dextrose 50% Abboject 50 ML SYRINGE SLOW IVP PRN (12:41)
[2020-07-21] MEDS ORDERED: hydrALAZINE 20 MG/ML VIAL SLOW IVP PRN (12:41)
[2020-07-21] MEDS ORDERED: Dextrose 5% in Water 1,000 ML IV PRN (12:41)
[2020-07-21] MEDS ORDERED: Ondansetron PF 4 MG/2 ML Vial IVP PRN (12:41)
[2020-07-21] MEDS ORDERED: Non-Formulary Item 1 EACH (Gabapentin [Gabapentin] 600 MG Tablet) PO SCH (12:41)
[2020-07-21] MEDS: Ketorolac Tromethamine 30 MG/ML VIAL IVP SCH ×2 (12:58→17:44)
[2020-07-21] MEDS: D5 1/2 NS w/20 mEq KCL 1,000 ML IV SCH ×2 (12:58→18:58)
[2020-07-21] MEDS ORDERED: Pantoprazole 40 MG VIAL IVP SCH (13:00)
[2020-07-21] MEDS: Hydrocodone-Acetamin 15 ML UDCUP PO PRN ×2 (14:47→18:59)
[2020-07-21] MEDS: Gabapentin 300 MG CAP PO SCH ×2 (14:48→20:49)
[2020-07-21] MEDS ORDERED: Non-Formulary Item 1 EACH (Zolpidem Tartrate [Ambien] 10 MG Tablet) PO SCH (21:00)
[2020-07-21] MEDS ORDERED: Zolpidem Tartrate 5 MG TAB PO SCH (21:00)
[2020-07-21] MEDS ORDERED: Enoxaparin Sodium 40 MG/0.4 ML SYRINGE SC SCH (21:00)
[2020-07-22] MEDS: Ketorolac Tromethamine 30 MG/ML VIAL IVP SCH ×3 (00:25→10:40)
[2020-07-22] MEDS: Hydrocodone-Acetamin 15 ML UDCUP PO PRN (04:33)
[2020-07-22] MEDS: D5 1/2 NS w/20 mEq KCL 1,000 ML IV SCH (04:37)
[2020-07-22 05:34] LABS: #Basophils 0.1 thou/uL (0.0-0.2); #Lymphocytes 2.8 thou/uL (1.20-3.40); #Monocytes 1.6 thou/uL (0.11-0.59); #Neutrophils 15.5 thou/uL (1.40-6.50); %Basophils 0.3 % (0.0-1.0); %Lymphocytes 13.9 % (21.0-51.0); %Monocytes 7.9 % (0.0-10.0); %Neutrophils 77.9 % (42.0-75.0); Hemoglobin 10.9 g/dL (12.0-16.0); Mean Corpuscular HGB CONC 31.4 g/dL (32.0-36.0); Mean Corpuscular Hemoglobin 27.5 pg (27.0-31.0); Mean Corpuscular Volume 87.8 fL (78.0-98.0); Mean Platelet Volume 7.7 fL (7.4-10.4); Platelet Count 394 thou/uL (130-400); RBC Distribution Width 11.7 % (11.5-14.5); Red Blood Cell (RBC) Count 3.96 mill/uL (4.20-5.40); White Blood Cell (WBC) Count 19.9 thou/uL (4.8-10.8)
[2020-07-22 06:04] LABS: Anion Gap 16 mmol/L (10-20); BUN (Urea Nitrogen) 7 mg/dL (9.8-20.1); Calc. Creatinine Clearance 148 mL/min (70-130); Calcium 8.3 mg/dL (7.8-10.44); Carbon Dioxide 19 mmol/L (22-29); Chloride 109 mmol/L (98-107); Glucose 136 mg/dL (70-105); Potassium 4.1 mmol/L (3.5-5.1); Sodium 140 mmol/L (136-145)
[2020-07-22] MEDS: Gabapentin 300 MG CAP PO SCH (07:37)
[2020-07-22] MEDS: Morphine 2 MG/ML VIAL SLOW IVP PRN ×2 (07:51→10:40)
--- NOTE | 2020-07-22 08:13 | PDOC.GSPN ---
Surgery Progress Note: Subj - Subjective Narrative: Ms. Davis is a 50 y.o. F POD 1 laparoscopic gastric bypass. She is doing well this morning She reported that she had abdominal pain and soreness all night but was alleviated with pain medication. Her pain levels this morning were 4/10. She has been ambulating frequently and without any difficulty. She has been able to tolerate her clear liquid diet without any nausea and vomiting. She has urinated a few times, but has not had a bowel movement or passed gas yet. She reports feeling constipated and says that see is chronically constipated due to her pain medication. She reported some drainage from her midline incision site yesterday because she turned awkwardly to get up, but has had no drainage since. She denies shortness of breath, chest pain, dizziness, and headaches. Her BP was 163/102 on the monitor and she was administered Hydralazine. Surgery Progress Note: Obj - Vital signs Vital signs: Vital Signs - Most Recent Temp Pulse Resp BP Pulse Ox 98.4 F 101 H 19 146/82 H 94 L 07/22/20 04:10 07/22/20 07:35 07/22/20 04:10 07/22/20 04:10 07/22/20 04:10 - Physical Exam General: no distress Cardiovascular: regular rate and rhythm Respiratory: clear to auscultation, normal expansion, normal respiratory effort, breath sounds present Abdomen: soft, nondistended, decreased bowel sounds, appropriately tender Psychiatric: memory intact Wound: healing well, drainage (No drainage this morning) Additional exam: Had some drainage from her midline incision site yesterday due to sudden movement, but has none since. Surgery Progress Note: Results - Labs Result Diagrams: 07/22/20 05:08 07/22/20 05:08 Lab results: Laboratory Results - last 12 hr 07/22/20 07/22/20 05:08 05:08 WBC 19.9 H RBC 3.96 L Hgb 10.9 L Hct 34.7 L MCV 87.8 MCH 27.5 MCHC 31.4 L RDW 11.7 Plt Count 394 MPV 7.7 Neutrophils % 77.9 H Lymphocytes % 13.9 L Monocytes % 7.9 Eosinophils % 0.0 Basophils % 0.3 Neutrophils # 15.5 H Lymphocytes # 2.8 Monocytes # 1.6 H Eosinophils # 0.0 Basophils # 0.1 Sodium 140 Potassium 4.1 Chloride 109 H Carbon Dioxide 19 L Anion Gap 16 BUN 7 L Creatinine 0.86 Estimated GFR (MDRD) 84 Glucose 136 H Calcium 8.3 Surgery Progress Note: A/P - Plan Plan: Ms. Davis is a 50 y.o. F POD 1 laparoscopic gastric bypass. She is doing well. - Advance to full liquid diet today - Reduce IV fluids given good PO intake and urine output - Continue DVT prophylaxis: SCDs, ambulation, and enoxaparin - Continue incentive spirometry - Continue pain management - Continue monitoring BP and administed hydralazine as needed - Discharge later today
[2020-07-22 08:14] VITALS: TEMP 98.2
[2020-07-22] MEDS ORDERED: Pantoprazole 40 MG VIAL IVP SCH (09:00)
[2020-07-22 10:29] VITALS: BP 133/90
--- NOTE | 2020-07-24 17:43 | OP ---
DATE OF PROCEDURE: 07/21/2020 PREOPERATIVE DIAGNOSES: Morbid obesity with gastroesophageal reflux disease. POSTOPERATIVE DIAGNOSES: Morbid obesity with gastroesophageal reflux disease. OPERATION PERFORMED: Laparoscopic Michael-en-Y gastric bypass. ASSISTANTS: 1. Froylan Almeida MD. 2. Margarita Roche, Medical Student. INDICATIONS: The patient is a 50-year-old morbidly obese black female. She has obesity associated comorbidities and additionally has gastroesophageal reflux disease. For this reason, laparoscopic gastric bypass has been recommended as the bariatric procedure of choice for her. She is taken to the operating room at this time for this procedure. DESCRIPTION OF OPERATION: Informed consent was obtained. The patient was taken to the operating room, where general endotracheal anesthesia obtained with the patient in supine position. Abdomen was prepped with ChloraPrep and draped in sterile fashion. Local anesthetic was infiltrated using a mixture of 1% lidocaine with epinephrine and 0.25% Marcaine. A 5 mm supraumbilical incision was created through which a Veress needle was passed into the peritoneal cavity. Pneumoperitoneum was established using carbon dioxide up to pressure of 15 mmHg. A 5 mm trocar port was passed through the same incision and laparoscopic camera was passed through this port. Under direct vision, a 5 mm trocar port was passed and laparoscopic camera was passed this port. Under direct vision, four additional ports were placed including bilateral subcostal 5 mm ports, a right paramedian 12 mm port, and a left paramedian 15 mm port. Later in the procedure, a 5 mm epigastric incision was created through which Elo retractor was passed to elevate the left lobe of the liver. The omentum was grasped and was nonadherent within the abdomen. It was split in the midline up to the level of the transverse colon. The ligament of Treitz was identified and 40 cm distally, the small bowel was divided with a single fire of the white load of the [place] stapler. The distal limb of the bowel was then devascularized for a length of about 5 cm using the LigaSure device. The bowel was traced 100 cm distally. At that location, I created an anastomosis between the proximal biliary limb and the Michael limb. The anastomosis created with a single fire of the white load of the [place] stapler. The common enterotomy between the 2 limbs was closed with another transverse fire of the same stapler. The mesenteric defect was then closed with 2 interrupted gkregc-ny-adizm sutures of 3-0 Vicryl. The patient was then placed into steep reverse Trendelenburg position. The stomach was inspected. There was no evidence of hiatal hernia. The stomach was well decompressed. About 5 cm distal to the gastroesophageal junction, the lesser curve was dissected to gain access into the lesser sac. I then partially transected the stomach at this level with a single fire of the blue load of the [place] stapler. A gastrotomy was created inferiorly on the stomach and through this, I passed the anvil of a 25 mm EEA stapler into the upper pouch and brought it out just proximal to the staple line. The gastrotomy was then closed with 2 fires of the blue load of the stapler. I then completed the gastric pouch with 2 additional fires of the blue load of the stapler angling towards the angle of His. All of the staple loads used in creation of the pouch utilized the buttressing strips. The spike was removed from within the anvil. An enterotomy was created in the devascularized section of the Michael limb and through this, the 25 mm stapler was passed proximally into the Michael limb and the spike was advanced antimesenteric. The spike was then secured to the anvil in the gastric pouch and the 2 segments of bowel were approximated and anastomosed by firing the stapler. The enterotomy within the small bowel was excluded as the devascularized segment was resected with one final application of the white load of the stapler. The segment of small bowel was removed through the 15 mm port. The port site fascia at that location was then closed in a [id number]-[id number]-pljcg fashion with 0 Vicryl suture using a GraNee needle. The anastomosis was checked to make sure that it was airtight while under water and there was no evidence of air leak. The anastomosis was buttressed with 3 interrupted sutures of 3-0 Vicryl. All ports and instruments were removed under direct vision. Pneumoperitoneum was carefully evacuated. Skin edges were approximated with 4-0 Monocryl subcuticular suture and Dermabond was placed externally. There were no complications. Blood loss was minimal. The patient tolerated the procedure well and was taken to recovery room in stable condition. Job ID: [id number]
== END 2020-07-22 11:15 | disposition home or self-care (01) | DRG 621 ==
LOC: SURG A 07-21 06:22
PROVIDERS: ADMIT Specialist; ATTEND Specialist
PROC: 0D164ZA Bypass Stomach to Jejunum, Percutaneous Endoscopic Approach (ICD-10-PCS; 2020-07-21)
PROC: 3E02340 Introduction of Influenza Vaccine into Muscle, Percutaneous Approach (ICD-10-PCS; principal; 2020-07-22)
DX: E66.01 Morbid (severe) obesity due to excess calories (principal); Z68.41 Body mass index [BMI] 40.0-44.9, adult; Z23 Encounter for immunization; Z90.710 Acquired absence of both cervix and uterus; Z88.8 Allergy status to other drugs, medicaments and biological substances; K21.9 Gastro-esophageal reflux disease without esophagitis
CPT/HCPCS: 36415; 80048; 85025; 90471; 90732; C9113; G0009; J0360; J0694; J1100; J1170; J1644; J1650; J1885; J2250; J2270; J2405; J2704; J2765; J3010; J3480; S0020

== ENCOUNTER 2020-08-01 15:17 | Day surgery (SDC) | payer OTHER, MEDICARE ==
[2020-08-01] MEDS ORDERED: Ondansetron PF 4 MG/2 ML Vial IVP PRN (15:52)
[2020-08-01] MEDS ORDERED: Multivitamins, Adult 10 ML in Sodium Chloride 0.9% 1,000 ML IV SCH (16:00)
[2020-08-01] MEDS ORDERED: Sodium Chloride 0.9% 1,000 ML IV SCH (16:00)
[2020-08-01] MEDS ORDERED: Thiamine HCl 200 MG/2 ML VIAL SLOW IVP SCH (16:00)
[2020-08-01 16:10] VITALS: BP 131/78; TEMP 98
== END 2020-08-01 18:17 | disposition home or self-care (01) ==
LOC: ONC/OP 15:17
PROVIDERS: ATTEND Specialist
DX: E86.0 Dehydration (principal); Z88.8 Allergy status to other drugs, medicaments and biological substances; R30.0 Dysuria
CPT/HCPCS: 87086; 96365; 96366; J2405; J3411; J7050

== ENCOUNTER 2020-08-02 23:10 | Emergency (ER) | payer OTHER, MEDICARE ==
[~2020-08-02 23:10] MED LIST: Iopamidol 370 76% 50 ML VIAL FS ONE; Iopamidol-370 76% 500 ML 1 ML ONE
[2020-08-02] MEDS ORDERED: Metoclopramide HCl 10 MG/2 ML VIAL ONE (23:47)
[2020-08-02 23:50] LABS: #Basophils 0.1 thou/uL (0.0-0.2); #Eosinphils 0.3 thou/uL (0.0-0.7); #Monocytes 0.9 thou/uL (0.11-0.59); #Neutrophils 6.4 thou/uL (1.40-6.50); %Basophils 1.1 % (0.0-1.0); %Eosinophils 2.2 % (0.0-10.0); %Lymphocytes 34.5 % (21.0-51.0); %Monocytes 7.7 % (0.0-10.0); %Neutrophils 54.5 % (42.0-75.0); Hemoglobin 10.4 g/dL (12.0-16.0); Mean Corpuscular HGB CONC 31.7 g/dL (32.0-36.0); Mean Corpuscular Volume 88.4 fL (78.0-98.0); Platelet Count 425 thou/uL (130-400); RBC Distribution Width 11.6 % (11.5-14.5); Red Blood Cell (RBC) Count 3.72 mill/uL (4.20-5.40); White Blood Cell (WBC) Count 11.7 thou/uL (4.8-10.8)
[2020-08-03 00:11] LABS: ALT (SGPT) 30 U/L (8-55); AST (SGOT) 24 U/L (5-34); Albumin 3.7 g/dL (3.5-5.0); Alkaline Phosphatase 59 U/L (40-110); Anion Gap 13 mmol/L (10-20); BUN (Urea Nitrogen) 6 mg/dL (9.8-20.1); Bilirubin, Total 0.5 mg/dL (0.2-1.2); Calc. Creatinine Clearance 0 mL/min (70-130); Calcium 8.5 mg/dL (7.8-10.44); Carbon Dioxide 24 mmol/L (22-29); Chloride 108 mmol/L (98-107); Globulin 3.8 g/dL (2.4-3.5); Glucose 96 mg/dL (70-105); Potassium 3.1 mmol/L (3.5-5.1); Protein, Total 7.5 g/dL (6.0-8.3); Sodium 142 mmol/L (136-145)
--- NOTE | 2020-08-03 08:01 | CT ---
PRELIMINARY REPORT/[facility]/EMERGENCY AFTER HOURS PROCEDURE: EXAM: CT Abdomen and Pelvis with Intravenous Contrast CLINICAL HISTORY: Patient here for evaluation secondary to nausea vomiting after bariatric surgery. Courtney pineda states that she had a gastric bypass performed on the of this month. Has a history of H. pylori and just finished treatment about a week ago. Has been having some nausea vomiting since [facility]. No other abdominal sx TECHNIQUE: Axial computed tomography images of the abdomen and pelvis with intravenous contrast. CONTRAST: With; ISOVUE 370;90mL IV injection ISOVUE 370/water solution;150mL oral COMPARISON: None provided. FINDINGS: LUNG BASES: No basilar airspace consolidation or pleural effusion. LIVER: Unremarkable. GALLBLADDER AND BILE DUCTS: Unremarkable. No calcified stone. No ductal dilation. PANCREAS: Unremarkable. SPLEEN: Unremarkable. ADRENAL GLANDS: Unremarkable. KIDNEYS, URETERS, AND BLADDER: Unremarkable. No hydronephrosis or nephrolithiasis. No ureteral or heike dder calculi. STOMACH AND BOWEL: The patient is status post gastric bypass. There is nonspecific circumferential mu ral thickening of a 6.5 cm long segment of the rouux/efferent/alimentary limb of small intestine in the anterior upper abdomen on axial images 32 through 44 from series 2. Findings are consistent with nonspecific enteritis or scarring, possibly resulting in the patient's symptomatology; however, contrast is seen to pass beyond this area of mural thickening. There is some contrast material in the visualized distal esophagus raising the possibility of GERD. No extraluminal contrast to suggest bowel leak. APPENDIX: No CT evidence for appendicitis. PERITONEUM: No free fluid. No free air. REPRODUCTIVE: Unremarkable as visualized. VASCULATURE: No aortic aneurysm. BONES: Degenerative changes resulting in varying degrees of neural foraminal stenosis. IMPRESSION: 1. The patient is status post gastric bypass. There is nonspecific circumferential mural thickening o f a 6.5 cm long segment of the rouux/efferent/alimentary limb of small intestine in the anterior upper abdomen on axial images 32 through 44 from series 2. Findings are consistent with nonspecific e nteritis or scarring, possibly resulting in the patient's symptomatology; however, contrast is seen to pass beyond this area of mural thickening. 2. There is some contrast material in the visualized distal esophagus raising the possibility of GERD . 3. Degenerative changes resulting in varying degrees of neural foraminal stenosis. ELECTRONICALLY SIGNED BY: Arun Hamilton MD Aug 03, 2020 1:03:28 AM INDUSTRIAL SALES ENGINEER FINAL REPORT EMERGENCY AFTER HOURS CT ABDOMEN AND PELVIS WITH IV CONTRAST: HISTORY: Nausea and vomiting after bariatric surgery. History of recent gastric bypass procedure. COMPARISON: Noncontrast CT abdomen and pelvis on 05/17/2020. IMPRESSION: 1. Postoperative changes related to gastric bypass procedure. Preliminary report notes mild wall thic kening involving loop of small bowel in the upper abdomen, but this could be related to incomplete distention. No dilated loops of small bowel are seen to suggest a small bowel obstruction. 2. No free intraperitoneal gas or free fluid is seen in the abdomen or pelvis. No fluid collection is identified. 3. Contrast in distal esophagus which may be related to gastroesophageal reflux. 4. Uterus is likely surgically absent. 5. Inflammatory changes in the left anterior abdominal wall adipose tissue likely due to recent posto perative change. No fluid collection is seen in this region. 6. Findings are in agreement with preliminary report by [facility]. Transcribed Date/Time: 08/03/2020 9:06 AM
== END 2020-08-03 01:20 | disposition home or self-care (01) ==
LOC: ERS 23:10
DX: K29.70 Gastritis, unspecified, without bleeding (principal); E87.6 Hypokalemia; K21.9 Gastro-esophageal reflux disease without esophagitis; I10 Essential (primary) hypertension; J45.909 Unspecified asthma, uncomplicated; Z79.899 Other long term (current) drug therapy
CPT/HCPCS: 74177; 80053; 85025; 96365; 96375; J2765; J3411; Q9967

== ENCOUNTER 2020-08-05 22:01 | Emergency (ER) | payer OTHER, MEDICARE ==
[~2020-08-05 22:01] MED LIST changes: -Iopamidol 370 76% 50 ML VIAL FS ONE
[2020-08-05 23:09] LABS: #Basophils 0.1 thou/uL (0.0-0.2); #Eosinphils 0.2 thou/uL (0.0-0.7); #Lymphocytes 4.1 thou/uL (1.20-3.40); #Neutrophils 6.9 thou/uL (1.40-6.50); %Basophils 0.9 % (0.0-1.0); %Eosinophils 1.7 % (0.0-10.0); %Lymphocytes 33.3 % (21.0-51.0); %Monocytes 7.9 % (0.0-10.0); %Neutrophils 56.2 % (42.0-75.0); Hemoglobin 11.5 g/dL (12.0-16.0); Mean Corpuscular HGB CONC 31.6 g/dL (32.0-36.0); Mean Corpuscular Hemoglobin 27.9 pg (27.0-31.0); Mean Corpuscular Volume 88.1 fL (78.0-98.0); Mean Platelet Volume 7.4 fL (7.4-10.4); Platelet Count 448 thou/uL (130-400); Red Blood Cell (RBC) Count 4.14 mill/uL (4.20-5.40); White Blood Cell (WBC) Count 12.2 thou/uL (4.8-10.8)
[2020-08-05 23:23] LABS: ALT (SGPT) 30 U/L (8-55); AST (SGOT) 21 U/L (5-34); Albumin 3.8 g/dL (3.5-5.0); Alkaline Phosphatase 58 U/L (40-110); Anion Gap 15 mmol/L (10-20); BUN (Urea Nitrogen) 7 mg/dL (9.8-20.1); Bilirubin, Total 0.5 mg/dL (0.2-1.2); Calc. Creatinine Clearance 0 mL/min (70-130); Calcium 8.6 mg/dL (7.8-10.44); Carbon Dioxide 23 mmol/L (22-29); Chloride 106 mmol/L (98-107); Globulin 4.1 g/dL (2.4-3.5); Glucose 90 mg/dL (70-105); Lipase 12 U/L (8-78); Potassium 3.2 mmol/L (3.5-5.1); Protein, Total 7.9 g/dL (6.0-8.3); Sodium 141 mmol/L (136-145)
[2020-08-05] MEDS ORDERED: Ondansetron PF 4 MG/2 ML Vial ONE (23:34)
[2020-08-06 00:04] LABS: Bilirubin Negative (Negative); Blood, Urine Negative (Negative); Clarity Clear (Clear); Glucose, Urine (Dipstick) Normal (Negative); Ketone, Urine 20 mg/dL (Negative); Leukocyte Negative Leu/uL (Negative); Nitrite Negative (Negative); Protein, Urine (Dipstick) 20 mg/dL (Neg-Trace); Specific Gravity, Urine 1.023 (1.002-1.036); Urobilinogen Normal mg/dL (Less than 2)
[2020-08-06] MEDS ORDERED: Potassium Chloride 20 MEQ TAB ONE (00:07)
[2020-08-06] MEDS ORDERED: Morphine 4 MG/ML VIAL ONE (01:21)
--- NOTE | 2020-08-06 08:19 | CT ---
PRELIMINARY REPORT/[facility]/EMERGENCY AFTER HOURS PROCEDURE: EXAM: CT abdomen/pelvis with contrast CLINICAL HISTORY: PT REPORTS SHE HAD GASTRIC BYPASS SURGERY ON 07/22, REPORTS N/V, CRAMPING ABD PAIN SINCE YESTERDAY. COMPARISONS: CT - CT ABDOMEN PELVIS W CON - 08/03/2020 12:31 AM MOLDING PLASTERER TECHNIQUE: CT imaging of the abdomen and pelvis after intravenous administration of 100 mL Isovue-370 iodinated contrast. Oral enteric contrast also administered. Multiplanar reconstructions performed. FINDINGS: LOWER CHEST: Normal. LIVER: Normal. GALLBLADDER/BILIARY: Mild dependent hyperattenuation, which may represent biliary sludge versus vicar ious biliary excretion of contrast. SPLEEN: Normal. PANCREAS: Normal. ADRENAL GLANDS: Normal. KIDNEYS/URETERS/URINARY BLADDER: Normal appearance of the kidneys. Ureters are normal in course maico muna. No urinary stones. Urinary bladder is unremarkable. REPRODUCTIVE: Post hysterectomy. Right ovary is unremarkable in appearance. The ovary not visualized, and may be surgically absent. STOMACH/BOWEL: There are again postoperative changes from Michael-en-Y gastric bypass. There is contrast within the distal esophagus, the gastric pouch, with transit of enteric contrast beyond of the gastrojejunal anastomosis through the Michael limb and likely beyond the jejunojejunal anastomosis. No e vidence of obstruction. There is mild apparent wall thickening of the excluded stomach and duodenum, likely secondary to decompression. Fatty mural infiltration of the colon, greatest at the a scending colon. Large bowel otherwise unremarkable. APPENDIX: Normal. PERITONEUM/MESENTERY: No intraperitoneal free air. No intraperitoneal free fluid. VASCULAR: Vascular structures of the abdomen and pelvis are normal in course and caliber. LYMPH NODES: No lymphadenopathy. MUSCULOSKELETAL: Normal. No acute osseous abnormality. ABDOMINAL WALL: Post surgical changes of the abdominal wall. IMPRESSION: 1. Postoperative changes from Michael-en-Y gastric bypass with transit of enteric contrast through the g astric pouch, Michael limb, and beyond the jejunojejunal anastomosis. No evidence of bowel obstruction. 2. Contrast within the distal esophagus, which may represent gastroesophageal reflux. 3. Mild dependent hyperattenuation within the gallbladder, which may represent biliary sludge or vica rious biliary excretion of contrast. 4. Fatty mural infiltration of the colon. This may be a chronic incidental, and may be secondary to s ystemic adipose deposition. However, this appearance can also be seen with chronic inflammatory changes. Correlate for history of inflammatory bowel disease. ELECTRONICALLY SIGNED BY: Yaron Helm MD Aug 06, 2020 1:26:36 AM MOLDING PLASTERER FINAL REPORT ABDOMEN AND PELVIC CT SCAN WITH CONTRAST: EMERGENCY AFTER HOURS EXAM TIME: 12:21 AM. DATE: 08/06/2020. COMPARISON: 08/03/2020. Recent postop changes in the stomach. No evidence for contrast extravasation or abscess. Contrast in the distal esophagus evidence for some reflux. Evidence for some wall thickening of the colon probably related to underdistention. No significant new process. This report agrees with preliminary report. Transcribed Date/Time: 08/06/2020 8:31 AM
== END 2020-08-06 01:40 | disposition home or self-care (01) ==
LOC: ERS 22:01
DX: G89.18 Other acute postprocedural pain (principal); E87.6 Hypokalemia; J45.909 Unspecified asthma, uncomplicated; K21.9 Gastro-esophageal reflux disease without esophagitis; I10 Essential (primary) hypertension; Z79.82 Long term (current) use of aspirin; Z79.899 Other long term (current) drug therapy
CPT/HCPCS: 36415; 74177; 80053; 81003; 83690; 85025; 96374; 96375; J2270; J2405; Q9967

== ENCOUNTER 2020-08-27 18:52 | Emergency (ER) | payer MEDICARE, OTHER ==
[2020-08-27] MEDS ORDERED: Metoclopramide HCl 10 MG/2 ML VIAL ONE (19:53)
[2020-08-27 20:26] LABS: Hemoglobin 11.9 g/dL (12.0-16.0); Mean Corpuscular HGB CONC 31.5 g/dL (32.0-36.0); Mean Corpuscular Hemoglobin 27.7 pg (27.0-31.0); Mean Corpuscular Volume 88.1 fL (78.0-98.0); Mean Platelet Volume 9.1 fL (7.4-10.4); Platelet Count 324 thou/uL (130-400); RBC Distribution Width 12.3 % (11.5-14.5); White Blood Cell (WBC) Count 13.2 thou/uL (4.8-10.8)
[2020-08-27 20:45] LABS: Band 2 % (5-11); Lymphocytes 44 % (21-51); MDiff Complete? YES; Monocytes 2 % (0-10); Neutrophil 52 % (42-75); Platelet Morphology Comment Appears Adequate; RBC Morphology Normal
[2020-08-27 21:00] LABS: Bacteria/HPF None Seen HPF (None Seen); Bilirubin 1+ (Negative); Blood, Urine Negative (Negative); Clarity Clear (Clear); Glucose, Urine (Dipstick) Normal (Negative); Ketone, Urine 40 mg/dL (Negative); Leukocyte 25 Leu/uL (Negative); Mucous/LPF 1+ LPF (<2+); Nitrite Negative (Negative); Protein, Urine (Dipstick) 70 mg/dL (Neg-Trace); RBC/HPF 0-3 HPF (0-3); Specific Gravity, Urine 1.036 (1.002-1.036); WBC/HPF 0-3 HPF (0-3)
[2020-08-27 21:01] LABS: Pregnancy Test - Urine (BHCG) Negative (Negative); Pregu Control Background? CLEAR/WHITE (CLR/WHITE); Pregu Control Bar Appear? YES (CONTROL BAR); Specific Gravity 1.036 (1.002-1.036)
--- NOTE | 2020-08-27 21:08 | ULT ---
Sonogram right upper quadrant HISTORY: Upper abdomen pain. FINDINGS: Echogenic material layering within the dependent portion of the gallbladder lumen without s tone apparent. No gallbladder wall thickening or pericholecystic fluid. Patient was reportedly not tender over the gallbladder fossa at the time of the exam. Common duct is 0.3 cm. Liver unremarkable without focal mass or intrahepatic biliary dilatation. No free fluid. IMPRESSION : Biliary sludge within the gallbladder is evidence of chronic gallbladder dyskinesis. No evidence of a cute biliary obstruction.
[2020-08-27 21:47] LABS: Albumin 3.6 g/dL (3.5-5.0)
[2020-08-27 21:48] LABS: Chloride 109 mmol/L (98-107); Sodium 143 mmol/L (136-145)
[2020-08-27 21:49] LABS: Calcium 8.4 mg/dL (7.8-10.44); Glucose 95 mg/dL (70-105)
[2020-08-27 21:50] LABS: Globulin 3.5 g/dL (2.4-3.5); Protein, Total 7.1 g/dL (6.0-8.3)
[2020-08-27 21:51] LABS: Anion Gap 14 mmol/L (10-20); Bilirubin, Total 0.6 mg/dL (0.2-1.2); Carbon Dioxide 23 mmol/L (22-29)
[2020-08-27 21:52] LABS: Alkaline Phosphatase 48 U/L (40-110)
[2020-08-27 21:53] LABS: Calc. Creatinine Clearance 0 mL/min (70-130); Potassium 2.9 mmol/L (3.5-5.1)
[2020-08-27 21:54] LABS: BUN (Urea Nitrogen) 8 mg/dL (9.8-20.1)
[2020-08-27 21:55] LABS: ALT (SGPT) 18 U/L (8-55); AST (SGOT) 11 U/L (5-34)
[2020-08-27 21:56] LABS: Lipase 13 U/L (8-78)
--- NOTE | 2020-08-27 22:06 | CT ---
CT abdomen with IV and oral contrast HISTORY: Abdominal pain. Gastric bypass, Michael-en-Y. COMPARISON: 08/06/2020. FINDINGS: The lung bases are clear. Postoperative changes consistent with Michael-en-Y bypass. Oral cont rast extends into the mid to distal jejunal without dilated bowel. No significant reflux into the eighth apparently. No extraluminal contrast. Solid organs are intact. No free air or free fluid. The pelvis was not imaged. IMPRESSION : No evidence of bowel obstruction or other acute abnormality.
[2020-08-27] MEDS ORDERED: Morphine 4 MG/ML VIAL ONE (22:20)
[2020-08-27] MEDS ORDERED: Ondansetron PF 4 MG/2 ML Vial ONE (22:20)
[2020-08-27] MEDS ORDERED: Potassium Chloride 20 MEQ TAB ONE (23:15)
[2020-08-28] MEDS ORDERED: Promethazine HCl 25 MG/ML VIAL ONE (00:42)
== END 2020-08-28 01:05 | disposition home or self-care (01) ==
LOC: ERS 18:52
DX: R10.84 Generalized abdominal pain (principal); E87.6 Hypokalemia; R11.2 Nausea with vomiting, unspecified
CPT/HCPCS: 36415; 74160; 76705; 80053; 81003; 81015; 81025; 83690; 85025; 93005; 96365; 96366; 96368; 96375; J2270; J2405; J2550; J2765

== ENCOUNTER 2020-09-05 08:31 | Outpatient (CLI) | payer OTHER, MEDICARE ==
--- NOTE | 2020-09-05 12:19 | NM ---
EXAM: Nuclear medicine hepatobiliary scan HISTORY: Right upper quadrant abdominal pain TECHNIQUE: A nuclear medicine hepatobiliary scan was performed after administration of 5.5 mCi of aldair hnetium 99m mebrofenin. A gallbladder ejection fraction was performed after administration of Ensure by mouth. COMPARISON: CT abdomen/pelvis 08/27/2020 and gallbladder ultrasound 08/27/2020 FINDINGS: Prompt uptake of the radiopharmaceutical by the liver is seen. No photopenic liver defects are seen. Biliary activity is seen within 15 minutes. Gallbladder activity is seen within 20 minutes. Bowel activity is seen within 30 minutes. A gallbladder ejection fraction was calculated at 36%. IMPRESSION: Decreased gallbladder ejection fraction could be secondary to gallbladder dyskinesia.
== END 2020-09-05 08:32 | disposition home or self-care (01) ==
LOC: ULT 08:31
PROVIDERS: ATTEND Specialist
DX: R10.11 Right upper quadrant pain (principal); R93.2 Abnormal findings on diagnostic imaging of liver and biliary tract
CPT/HCPCS: 78227; A9537

== ENCOUNTER 2020-09-16 10:03 | Day surgery (SDC) | payer OTHER, MEDICARE ==
[2020-09-15 09:17] VITALS: BMI 36.3
[2020-09-16] MEDS ORDERED: Ketorolac Tromethamine 30 MG/ML VIAL ONE (11:14)
[2020-09-16] MEDS ORDERED: Acetaminophen 500 MG TAB ONE (11:14)
[2020-09-16] MEDS ORDERED: Fentanyl 100 MCG/2 ML VIAL ONE ×4 (11:53→14:42)
[2020-09-16] MEDS ORDERED: Dexmedetomidine 200 MCG/2 ML VIAL ONE (11:53)
[2020-09-16] MEDS ORDERED: XYLOCAINE 2%-EPI 1:100,000 20 ML VIAL ONE (11:57)
[2020-09-16] MEDS ORDERED: Bupivacaine 0.25% HCL 30 ML VIAL ONE (11:57)
[2020-09-16] MEDS ORDERED: Midazolam HCl 2 mg/2 ml Vial ONE (12:13)
[2020-09-16] MEDS ORDERED: HYDROmorphone 2 MG/ML VIAL ONE (13:53)
[2020-09-16] MEDS ORDERED: diphenhydrAMINE 25 MG CAP ONE (15:26)
--- NOTE | 2020-09-17 08:39 | OP ---
DATE OF PROCEDURE: 09/16/2020 PREOPERATIVE DIAGNOSES: Gallbladder sludge and biliary dyskinesia. POSTOPERATIVE DIAGNOSES: Gallbladder sludge and biliary dyskinesia. PROCEDURE PERFORMED: Laparoscopic cholecystectomy. ANESTHESIA: General endotracheal. INDICATIONS: The patient is a 50-year-old female who is status post recent laparoscopic gastric bypass. She has had persistent problems with postprandial epigastric discomfort. Recent gallbladder ultrasound showed suggestion of gallbladder sludge. HIDA scan showed low ejection fraction. She was taken to the operating room at this time for laparoscopic cholecystectomy for this purpose. PROCEDURE IN DETAIL: Informed consent was obtained. The patient was taken to the operating room where general endotracheal anesthesia was obtained with the patient in the supine position. The abdomen was prepped with Betadine and draped in the usual sterile fashion. 0.25% Marcaine with epinephrine was infiltrated below the umbilicus and a 10 mm infraumbilical incision was created. A Veress needle was passed through this incision into the peritoneal cavity. A pneumoperitoneum was established using carbon dioxide up to a pressure of 15 mmHg. Local anesthetic was infiltrated and 3 additional 5 mm right upper quadrant incisions were created. Through the mid incision, a 5 mm port was passed into the peritoneal cavity. The camera was passed through this port and under direct vision, an 11 port was passed through the infraumbilical incision. The camera was replaced through this port, and under direct vision, 2 additional 5 mm ports were passed through the incisions already created. The gallbladder was grasped and retracted in a cephalad direction. Minimal adhesions were bluntly stripped away from the apex of the gallbladder, and the apex was retracted laterally and inferiorly. Careful dissection was carried out to the apex of the gallbladder to identify the cystic duct and cystic artery. These were each carefully dissected circumferentially. The duct was of normal caliber. Both the duct and the artery were divided between clips, leaving 2 on the side to remain within the abdomen. The gallbladder was then dissected out of the gallbladder fossa using electrocautery and removed through the infraumbilical port site. The fascia was closed with 0 Vicryl suture and a GraNee needle. The right upper quadrant was inspected and irrigated. All irrigant was aspirated. All ports and instruments were removed under direct vision. Pneumoperitoneum was carefully evacuated. Additional local anesthetic was infiltrated into each port site. The skin edges were approximated with 4-0 Monocryl subcuticular sutures, and Dermabond was placed externally. There were no complications. The patient tolerated the procedure well and was taken to the recovery room in stable condition. FINDINGS: I was able to utilize several of the laparoscopic incisions from her recent gastric bypass in accessing her abdominal cavity. The gallbladder showed no evidence of acute inflammation, however, there was a substantial volume of sludgy material within the gallbladder. The operation was performed without complication or blood loss. Job ID: [id number]
== END 2020-09-16 15:50 | disposition home or self-care (01) ==
LOC: SDC 10:03
PROVIDERS: ATTEND Specialist
PROC: 0FT44ZZ Resection of Gallbladder, Percutaneous Endoscopic Approach (ICD-10-PCS; principal; 2020-09-16)
DX: K80.10 Calculus of gallbladder with chronic cholecystitis without obstruction (principal); K82.8 Other specified diseases of gallbladder; E66.01 Morbid (severe) obesity due to excess calories; I10 Essential (primary) hypertension; E86.0 Dehydration; M19.90 Unspecified osteoarthritis, unspecified site; E89.0 Postprocedural hypothyroidism; J45.909 Unspecified asthma, uncomplicated; F32.9 Major depressive disorder, single episode, unspecified; Z68.36 Body mass index [BMI] 36.0-36.9, adult; Z79.899 Other long term (current) drug therapy; Z88.8 Allergy status to other drugs, medicaments and biological substances; Z96.652 Presence of left artificial knee joint
CPT/HCPCS: 88304; J0690; J1170; J1885; J2250; J3010; Q0163; S0020